=== PATIENT | female | born 1985 | race Caucasian/White ===

== ENCOUNTER 2023-02-07 17:55 | Emergency (ER) | payer BC ==
[2023-02-07] MEDS ORDERED: Lidocaine 2% 20 ml MDV ONE (18:16)
[2023-02-07] MEDS ORDERED: Boostrix 0.5 ML (Tdap) VIAL (>/=7 yrs of age) ONE (18:16)
[2023-02-07] MEDS ORDERED: Bacitracin 1 PK ONE (18:39)
[2023-02-07] MEDS ORDERED: Doxycycline 100 MG CAP ONE (18:39)
== END 2023-02-07 19:07 | disposition home or self-care (01) ==
LOC: MADERS 17:55
DX: S61.432A Puncture wound without foreign body of left hand, initial encounter (principal); W26.0XXA Contact with knife, initial encounter; Y93.89 Activity, other specified; Z23 Encounter for immunization
CPT/HCPCS: 90471; 90715; 99283